=== PATIENT | male | born 1980 ===

== ENCOUNTER 2016-08-19 18:23 | Emergency (ER) | payer MEDICAID ==
[2016-08-19 20:47] VITALS: RESP 20
[2016-08-19 20:51] LABS: BASO % 0.5 % (0.0-2.0); EOS # 0.1 K/uL (0.0-0.7); EOS % 0.8 % (0.0-4.0); HEMATOCRIT 42.4 % (35.0-51.0); LYMPH # 1.9 K/uL (1.0-4.3); LYMPH % 18.9 % (20.0-40.0); MEAN CELL VOLUME 86.7 fL (80.0-94.0); MEAN CORPUSCULAR HEMOGLOBIN 28.5 pg (27.0-31.0); MEAN CORPUSCULAR HGB CONC 32.8 g/dL (33.0-37.0); MEAN PLATELET VOLUME 9.8 fL (7.2-11.7); MONO # 0.8 K/uL (0.0-0.8); MONO % 8.2 % (0.0-10.0); RED CELL DISTRIBUTION WIDTH 14.4 % (11.5-14.5); WHITE BLOOD COUNT 9.8 K/uL (4.8-10.8)
[2016-08-19 21:12] LABS: INR 1.1
[2016-08-19 21:25] LABS: CHLORIDE 107 mmol/L (98-107)
[2016-08-19 21:26] LABS: SODIUM 139 mmol/L (132-148)
[2016-08-19 21:27] LABS: CHOLESTEROL 154 mg/dL (0-199)
[2016-08-19 21:28] LABS: ALB/GLOB RATIO 1.1 (1.0-2.1); ALKALINE PHOSPHATASE 103 U/L (38-126); ALT/SGPT 26 U/L (21-72); AST/SGOT 18 U/L (17-59); BILIRUBIN,TOTAL 0.5 mg/dL (0.2-1.3); BLOOD UREA NITROGEN 19 mg/dL (9-20); CARBON DIOXIDE 24 mmol/L (22-30); GFR AFRICAN-AMERICAN > 60; GLUCOSE,RANDOM 343 mg/dL (75-110); TOTAL PROTEIN 6.8 g/dL (6.3-8.3)
--- NOTE | 2016-08-19 21:37 | C.PDOC ---
History Of Present Illness Patient is a 36 year old male who presents to the ER with a complaint of elevated blood pressure and dizziness. Patient states he does not take his insulin, blood pressure medication and does not monitor his blood pressure. Denies fever, chills, nausea or vomiting. Time Seen by Provider: 08/19/16 20:24 Chief Complaint (Nursing): Headache History Per: Patient History/Exam Limitations: no limitations Onset/Duration Of Symptoms: Hrs Current Symptoms Are (Timing): Still Present Preceeding Symptoms: None Associated Symptoms: Other (Dizziness). denies: Nausea, Vomiting Recent travel outside of the [place]: No Past Medical History Reviewed: Historical Data, Nursing Documentation, Vital Signs Vital Signs: Last Vital Signs Temp 98.5 F 08/19/16 23:13 Pulse 100 H 08/19/16 23:13 Resp 20 08/19/16 23:13 BP 163/103 H 08/19/16 23:13 Pulse Ox 98 08/19/16 23:19 - Medical History PMH: Depression, Diabetes, HTN, Migraine, Seizures Surgical History: Cholecystectomy Family History: States: Unknown Family Hx - Social History Hx Alcohol Use: No Hx Substance Use: No - Immunization History Hx Influenza Vaccination: Yes Review Of Systems Constitutional: Negative for: Fever, Chills Gastrointestinal: Negative for: Nausea, Vomiting Neurological: Positive for: Dizziness Physical Exam - Physical Exam Appears: Non-toxic, No Acute Distress, Other (Obese. Awake, alert and oriented x3. Child like demeanor) Skin: Normal Color, Warm, Dry Head: Atraumatic, Normacephalic Eye(s): bilateral: Normal Inspection, PERRL, EOMI Oral Mucosa: Moist Chest: Symmetrical, No Tenderness Cardiovascular: Rhythm Regular, No Murmur Respiratory: Normal Breath Sounds, No Rales, No Rhonchi, No Wheezing Gastrointestinal/Abdominal: Soft, No Tenderness Neurological/Psych: Oriented x3, Normal Speech, Normal Cognition ED Course And Treatment - Laboratory Results Result Diagrams: 08/19/16 20:47 08/19/16 21:13 Lab Interpretation: Abnormal (elev glu, HGB A1C 14.6 HH) ECG: Interpreted By Nd ECG Rhythm: Sinus Rhythm ECG Interpretation: Normal Rate From EC (bpm) O2 Sat by Pulse Oximetry: 98 (RA) Pulse Ox Interpretation: Normal - Radiology CXR: Interpreted by Me - CT Scan/US Head CT Other Rad Studies (CT/US): Read By Radiologist, Radiology Report Reviewed CT/US Interpretation: IMPRESSION: 1. No acute intracranial abnormality. 2. If symptoms persist, consider MRI for further evaluation. 3. Incidental/non-acute findings are described above. Progress Note: EKG and CXR ordered. Catapres, valium, insulin and toradol administered. Reevaluation Time: 23:05 Reassessment Condition: Improved Medical Decision Making Medical Decision Making: EKG: NSR at 95 bpm poorly controlled htn, DM, pt non-compliant with daily insulin and finger sticks "for 2 days only" though HGB A1C 14.6 argues for average glu levels >500 claims to have FS machine, test strips and lancets in good supply @ home. Extensively educated pt with poor insight. Disposition Doctor Will See Patient In The: Office Counseled Patient/Family Regarding: Studies Performed, Diagnosis - Disposition Referrals: Sommer Reece MD [Non-Staff] - Disposition: HOME/ ROUTINE Disposition Time: 23:18 Condition: GOOD Additional Instructions: please continue to check your finger sticks in the morning before breakfast and before dinner Write the results in your fingerstick log book and bring to your next visit with Dr. Reece You must eat a diabetic diet- 4-5 small meals per day take your blood pressure medicine, Vasotec 40 mg every morning (this is increased from previous) Follow-up with Dr. Reece this week for a follow-up appointment Prescriptions: Enalapril Maleate [Vasotec] 40 mg PO DAILY #60 tab Instructions: How to Check Your Blood Sugar (ED) - Clinical Impression Clinical Impression: Hyperglycemia due to type 1 diabetes mellitus, Hypertension - Scribe Statement The provider has reviewed the documentation as recorded by the Scribe Marlon Chan All medical record entries made by the Scribe were at my direction and personally dictated by me. I have reviewed the chart and agree that the record accurately reflects my personal performance of the history, physical exam, medical decision making, and the department course for this patient. I have also personally directed, reviewed, and agree with the discharge instructions and disposition.
[2016-08-19] MEDS ORDERED: (Novolin R) Insulin Human Regular 100 units/ml vial IV STA (21:56)
[2016-08-19] MEDS ORDERED: (Novolin R) Insulin Human Regular 100 units/ml vial ONE (22:11)
--- NOTE | 2016-08-19 22:13 | CT ---
EXAM: CT Head Without Intravenous Contrast CLINICAL HISTORY: 36 years old, male; Pain and signs and symptoms; Dizziness; Headache; Headache not specified; Additional info: [place]an/dizzy, ++ HTN TECHNIQUE: Axial computed tomography images of the head/brain without intravenous contrast. This CT exam was performed using one or more of the following dose reduction techniques: automated exposure control, adjustment of the mA and/or kV according to patient size, and/or use of iterative reconstruction technique. COMPARISON: No relevant prior studies available. FINDINGS: Brain: No intracranial hemorrhage. No mass. No definite edema. Ventricles: No hydrocephalus. Cavum septum pellucidum and vergae. Bones/joints: No acute fracture. Soft tissues: Unremarkable. Sinuses: No acute sinusitis. Mastoid air cells: No mastoid effusion. Orbits: Small calcification along RIGHT optic nerve, nonspecific. Nasopharynx: Prominent adenoids. IMPRESSION: 1. No acute intracranial abnormality. 2. If symptoms persist, consider MRI for further evaluation. 3. Incidental/non-acute findings are described above.
[2016-08-19 22:20] LABS: CALCIUM 8.7 mg/dl (8.6-10.4)
[2016-08-19 23:13] VITALS: BP 163/103; PULSE 100; TEMP 98.5
[2016-08-19 23:15] VITALS: O2SAT 98
--- NOTE | 2016-08-20 08:51 | RAD ---
HISTORY: Hypertension COMPARISON: No prior. FINDINGS: LUNGS: Mild venous congestion. PLEURA: No significant pleural effusion identified, no pneumothorax apparent. CARDIOVASCULAR: Grossly preserved. OSSEOUS STRUCTURES: No significant abnormalities. VISUALIZED UPPER ABDOMEN: Normal. OTHER FINDINGS: None. IMPRESSION: Mild venous congestion.
--- NOTE | 2016-08-22 00:26 | CARD ---
APPROVED REPORT EKG Measurement Heart [id number] <Conclusion> Normal sinus rhythm Normal ECG
== END 2016-08-19 23:34 | disposition home or self-care (01) ==
LOC: C.ER 18:23
DX: E10.65 Type 1 diabetes mellitus with hyperglycemia (principal); Z79.4 Long term (current) use of insulin; I10 Essential (primary) hypertension
CPT/HCPCS: 70450; 71010; 80053; 80061; 82948; 83036; 84484; 85025; 85610; 85730; 96374; 99285; J1885

== ENCOUNTER 2016-12-14 11:05 | Inpatient (IN) | payer MEDICAID ==
--- NOTE | 2016-12-14 11:27 | C.PDOC ---
History Of Present Illness 36 year old male presents to the ED for evaluation of recurrent chest pain and anxiety since 10:00. Patient reports history of similar symptoms in past. He states "I get them twice weekly." Chest pain described as midsternal, constant, and associated with shortness of breath. He notes that he has been noncompliant with prescription Zoloft for the past 9 months. He does not take any other medications for anxiety. He has not been evaluated for these symptoms in the past. CO RECUR CP, ANXIETY SINCE 1000. PS HO SIM PRIOR SX, "I GET THEM TWICE WEEKLY". MIDSTERNAL CONSTANT +SOB. NONCOMPLIANT W ZOLOFT X 9 MONTHS. TAKES NO OTHER MEDS FOR ANXIETY. NO PRIOR EVAL FOR SAME. EXAM MILD DIST PSYCH MILD ANXIETY BUT CALM CONSOLABLE, COOPERATIVE LUNGS CTA B/L NO W/R/R CV RRR REMIANDER NEG Time Seen by Provider: 12/14/16 11:17 Chief Complaint (Nursing): Chest Pain History Per: Patient History/Exam Limitations: no limitations Onset/Duration Of Symptoms: Mins Associated Symptoms: Other (Shortness of breath) Past Medical History Reviewed: Historical Data, Nursing Documentation, Vital Signs Vital Signs: Last Vital Signs Temp 97.8 F 12/15/16 07:05 Pulse 82 12/15/16 08:03 Resp 20 12/15/16 07:05 BP 128/77 12/15/16 07:05 Pulse Ox 97 12/15/16 10:04 - Medical History PMH: Depression, Diabetes, HTN, Migraine, Seizures Denies: Chronic Kidney Disease Surgical History: Cholecystectomy Family History: States: Unknown Family Hx - Social History Hx Alcohol Use: No Hx Substance Use: No - Immunization History Hx Influenza Vaccination: Yes Review Of Systems Cardiovascular: Positive for: Chest Pain Respiratory: Positive for: Shortness of Breath Psych: Positive for: Anxiety Physical Exam - Physical Exam Appears: Non-toxic, In Acute Distress (Mild) Skin: Warm, Dry Head: Atraumatic, Normacephalic Eye(s): bilateral: Normal Inspection, PERRL, EOMI Cardiovascular: Rhythm Regular (Rate regular ) Respiratory: No Rales, No Rhonchi, No Wheezing, Other (Clear to ascultation bilaterally) Extremity: No Pedal Edema, No Deformity Neurological/Psych: Oriented x3, Other (mild anxiety but calm, consolable, and cooperative ) ED Course And Treatment - Laboratory Results Result Diagrams: 12/14/16 11:52 12/14/16 11:52 ECG: Interpreted By Me ECG Rhythm: Sinus Tachycardia Rate From EC O2 Sat by Pulse Oximetry: 97 Pulse Ox Interpretation: Normal Progress - Re-Evaluation Re-evaluation Note: 12/14/16 12:09 CRYING BUT CONSOLABLE "JENNIFER BEEN PLAYING [employer]". NONCOMPLIANT W DM MEDS "I DONT REMEMBER THE LAST TIME I TOOK THEM". 12/14/16 12:49 APPEARS CALM, IMPROVED FROM PRIOR. HR 111 SINUS TACH. NO CP. D/W DR BAY WILL EVAL FOR ICU 12/14/16 12:56 D/W DR CLEMENTE HUDDLESTON [employer] WILL ADMIT 12/14/16 12:57 D/W PSYCH 5E WILL CONSULT PT ON FLOOR 12/14/16 13:11 PT CLEARED FOR TELE PER DR BAY - Data Reviewed Data Reviewed: Lab, Diagnostic imaging, EKG, Old records - Critical Care Citical Care: Excluding Proc Time Critical Care Time: 90 minutes - Continuity of Care Discussed patient case with:: Patient, On-call PMD-pt unassigned Discussed pt. case with [employer] sales consultant/specialty: Psychiatry, Pulmonary/Crit. Care Disposition Counseled Patient/Family Regarding: Studies Performed, Diagnosis - Disposition Disposition: HOSPITALIZED Disposition Time: 12:56 Condition: SERIOUS - POA Present On Arrival: Poor Glycemic Control - Clinical Impression Clinical Impression: Chest pain, Depression, DKA (diabetic ketoacidoses) - Scribe Statement The provider has reviewed the documentation as recorded by the Sylvia Kennedy Provider Attestation: All medical record entries made by the Shastaibe were at my direction and personally dictated by me. I have reviewed the chart and agree that the record accurately reflects my personal performance of the history, physical exam, medical decision making, and the department course for this patient. I have also personally directed, reviewed, and agree with the discharge instructions and disposition. Decision To Admit - Pt Status Changed To: Hospital Disposition Of: Inpatient - Admit Certification Admit to Inpatient:: After my assessment, the patient will require hospitalization for at least two midnights. This is because of the severity of symptoms shown, intensity of services needed, and/or the medical risk in this patient being treated as an outpatient. - InPatient: Physician Admission Certification: I certify that this patient requires 2 or more midnights of care for the following reason:: SEE NOTE - . Bed Request Type: Telemetry Admitting Physician: Ray Barfield Patient Diagnosis: Chest pain, Depression, DKA (diabetic ketoacidoses)
[2016-12-14 11:57] LABS: BASO # 0.1 K/uL (0.0-0.2); BASO % 0.5 % (0.0-2.0); EOS % 0.4 % (0.0-4.0); HEMATOCRIT 45.5 % (35.0-51.0); LYMPH # 1.9 K/uL (1.0-4.3); LYMPH % 16.9 % (20.0-40.0); MEAN CELL VOLUME 85.8 fL (80.0-94.0); MEAN CORPUSCULAR HEMOGLOBIN 28.9 pg (27.0-31.0); MEAN CORPUSCULAR HGB CONC 33.7 g/dL (33.0-37.0); MEAN PLATELET VOLUME 9.5 fL (7.2-11.7); MONO # 0.7 K/uL (0.0-0.8); MONO % 6.2 % (0.0-10.0); NRBC % 0.1 % (0.0-2.0); RED CELL DISTRIBUTION WIDTH 14.4 % (11.5-14.5)
[2016-12-14] MEDS ORDERED: Sodium Chloride 0.9% 1,000 ML IV ONE ×3 (12:03→16:14)
[2016-12-14 12:12] LABS: CHLORIDE 95 mmol/L (98-107)
[2016-12-14 12:13] LABS: POTASSIUM 4.8 mmol/L (3.6-5.2); SODIUM 129 mmol/L (132-148)
[2016-12-14 12:15] LABS: GFR AFRICAN-AMERICAN > 60
[2016-12-14] MEDS ORDERED: Sodium Chloride 0.9% 1,000 ML ONE (12:15)
[2016-12-14 12:16] LABS: BLOOD UREA NITROGEN 27 mg/dL (9-20); CARBON DIOXIDE 18 mmol/L (22-30)
[2016-12-14] MEDS ORDERED: (Novolin R) Insulin Human Regular 100 units/ml vial IV STA ×2 (12:32)
[2016-12-14 12:33] LABS: GLUCOSE,RANDOM 639 mg/dL (75-110)
[2016-12-14 12:43] LABS: VENOUS BLOOD GAS BASE EXCESS -4.8 mmol/L (0.0-2.0); VENOUS BLOOD GAS PCO2 44 mmHg (40-60)
[2016-12-14] MEDS ORDERED: (Novolin R) Insulin Human Regular 100 units/ml vial ONE (12:51)
--- NOTE | 2016-12-14 14:29 | RAD ---
PROCEDURE: CHEST RADIOGRAPH, 1 VIEW HISTORY: chest pain COMPARISON: Comparison is made to 08/19/2016 FINDINGS: LUNGS: Clear. PLEURA: No pneumothorax or pleural fluid seen. CARDIOVASCULAR: Normal. OSSEOUS STRUCTURES: No significant abnormalities. VISUALIZED UPPER ABDOMEN: Normal. OTHER FINDINGS: None. IMPRESSION: No active disease.
[2016-12-14 15:03] VITALS: RESP 20
[2016-12-14] MEDS ORDERED: (Novolin 70/30) NPH/Regular 70/30 Units/ml 10 ml vial SC ONE (16:14)
[2016-12-14] MEDS ORDERED: Sodium Chloride 0.9% 250 ML IV ONE (16:24)
[2016-12-14] MEDS ORDERED: Insulin Detemir 100 units/ml Vial (Levemir) SC SCH (22:00)
[2016-12-14] MEDS ORDERED: (Novolog) Insulin Aspart, Recombinant 100 u/ml 10 ml vial SC SCH (22:00)
[2016-12-14] MEDS ORDERED: (Novolog) Insulin Aspart, Recombinant 100 u/ml 10 ml vial SC STA (22:00)
[2016-12-14] MEDS: Sodium Chloride 0.9% 1,000 ML IV SCH (22:51)
[2016-12-15] MEDS: Sodium Chloride 0.9% 1,000 ML IV SCH ×4 (05:35→22:10)
[2016-12-15] MEDS ORDERED: Insulin Detemir 100 units/ml Vial (Levemir) SC SCH ×3 (07:30→18:23)
[2016-12-15] MEDS: (Novolog) Insulin Aspart, Recombinant 100 u/ml 10 ml vial SC SCH ×3 (08:15→17:30)
[2016-12-15] MEDS ORDERED: Pantoprazole 40 mg EC Tab PO SCH (10:00)
[2016-12-15] MEDS ORDERED: (Novolog) Insulin Aspart, Recombinant 100 u/ml 10 ml vial SC SCH (18:05)
--- NOTE | 2016-12-15 18:14 | CP.PCM.CON ---
History of Present Illness - History of Present Illness History of Present Illness: uncontrolled dm Past Patient History - Past Medical History & Family History Past Medical History?: Yes - Past Social History Smoking Status: Never Smoked - CARDIAC Hx Hypertension: Yes - PULMONARY Hx Respiratory Disorders: No - NEUROLOGICAL Hx Migraine: Yes Hx Seizures: Yes - HEENT Hx HEENT Problems: Yes Other/Comment: wear eyeglasses for reading - RENAL Hx Chronic Kidney Disease: No - ENDOCRINE/METABOLIC Hx Endocrine Disorders: Yes Hx Diabetes Mellitus Type 1: Yes - HEMATOLOGICAL/ONCOLOGICAL Hx Blood Disorders: No - INTEGUMENTARY Hx Dermatological Problems: Yes Other/Comment: Hx of left buttock abscess. Noted old scar - MUSCULOSKELETAL/RHEUMATOLOGICAL Hx Falls: Yes - GASTROINTESTINAL Hx Gastrointestinal Disorders: No - GENITOURINARY/GYNECOLOGICAL Hx Genitourinary Disorders: No - PSYCHIATRIC Hx Depression: Yes Hx Substance Use: No - SURGICAL HISTORY Hx Cholecystectomy: Yes - ANESTHESIA Hx Anesthesia: Yes Hx Anesthesia Reactions: No Hx Malignant Hyperthermia: No Has any member of the family had a problem w/ anesthesia?: No Meds Allergies/Adverse Reactions: Allergies Allergy/AdvReac Type Severity Reaction Status Date / Time iodine Allergy RASH Verified 12/14/16 11:09 - Medications Medications: Current Medications Sodium Chloride (Sodium Chloride 0.9%) 1,000 mls @ 150 mls/hr IV .Q6H40M [facility] Last Admin: 12/15/16 10:45 Dose: Not Given Insulin Aspart (Novolog) 0 unit SC ACHS [facility] PRN Reason: Protocol Last Admin: 12/15/16 17:30 Dose: 6 unit Insulin Detemir (Levemir) 18 unit SC ACB [facility] Last Admin: 12/15/16 08:10 Dose: 18 unit Insulin Detemir (Levemir) 30 unit SC HS [facility] Last Admin: 12/14/16 22:16 Dose: 30 unit Lisinopril (Zestril) 20 mg PO DAILY [facility] Last Admin: 12/15/16 09:18 Dose: 20 mg Pantoprazole Sodium (Protonix Ec Tab) 40 mg PO DAILY [facility] Last Admin: 12/15/16 09:18 Dose: 40 mg Pneumococcal Polyvalent Vaccine (Pneumovax 23 Vaccine) 0.5 ml IM .ONCE ONE Stop: 12/16/16 10:01 Results - Vital Signs Recent Vital Signs: Last Vital Signs Temp 98.1 F 12/15/16 15:00 Pulse 84 12/15/16 15:00 Resp 20 12/15/16 15:00 BP 123/82 12/15/16 15:00 Pulse Ox 96 12/15/16 15:00 - Labs Result Diagrams: 12/14/16 11:52 12/14/16 11:52 Labs: Laboratory Results - last 24 hr 12/14/16 12/15/16 12/15/16 21:12 02:01 05:49 POC Glucose (mg/dL) 429 H* 285 H 218 H 12/15/16 12/15/16 11:30 17:16 POC Glucose (mg/dL) 277 H 268 H Assessment & Plan (1) Chest pain Status: Acute (2) DKA (diabetic ketoacidoses) Assessment and Plan: Endocrine consult reason for consult: uncontrolled diabetes Source : Mr. Lenin Gresham is 36 y/o man admitted for chest pain , found with glucose > 600 as per pt. has DM x 17 years (+) neuropathy , (+) retinopathy , (-) nephropathy (-) CAD (-) PVD outpatient diabetes management regimen : levemir 18 units am & levemir 30 units pm , off Metformin , short acting insulin not covered by insurance ! inpatient diabetes management regimen : same & novolog scale blood glucose log :200's , as per nurse in charge , pt has been refusing blood drown NO hypoglycemia Allergy Idoine Past medical history :HTN Past surgical history : cholecystectomy, buttock abscess I & D Psychiatry history : (+) psychiatry disorder Social history : smoking , ETOH use , illicit drug use Family history : irrelevant ROS: Constitutional: denies fever ,tiredness/weakness .HEENT: denies earache, change in voice .Respiratory: denies cough, sob . CVS :no chest pain, no palpitations . Abdomen : no abdominal pain, no nausea /vomiting , no change bowel movement . OFFSET PRESSMAN : denies light-headedness, dizziness. Extremities : no edema , no tremors . Skin: no itching, no rash Physical exam Well developed AAO x3 , ,NAD VSS HEENT: norm cephalic, atraumatic , no lid lag , no exophthalmos NECK: supple, no palpable lymphadenopathy THYROID: no palpable thyromegaly , not tender CHEST: fair air entry, bilateral, CVS: S1,S2 ABDOMEN: bowel sound present, benign, obese, no wide purple striae , no bruises EXTREMITIES: no edema, clubbing or cyanosis, no palpable hand tremors Skin : acanthosis nigricans lab: noted Assessment DKA uncontrolled IDDM with retinopathy and neuropathy chest pain morbid obesity plan increase Levemir 20 units am & 32 units pm stop Novolog start Novoloin R low dose coverage, no 3 am coverage start novoloin R 5 units tid with meals if eat > 60% will try to obtain a1c & TSH , CMP stat plan communicated with nurse in charge who read back the instructions correctly Thank you for allowing me to participate in the care of the patient, we will follow with you. Status: Acute (3) Morbid obesity Status: Acute
[2016-12-15] MEDS: (Novolin R) Insulin Human Regular 100 units/ml vial SC SCH (21:54)
[2016-12-16] MEDS: (Novolin R) Insulin Human Regular 100 units/ml vial SC SCH (07:55)
[2016-12-16] MEDS ORDERED: (Novolin R) Insulin Human Regular 100 units/ml vial SC SCH (08:00)
[2016-12-16 08:37] VITALS: BP 122/81; PULSE 64; TEMP 97.5; O2SAT 98
--- NOTE | 2016-12-16 09:39 | CP.PCM.PN ---
Subjective - Date & Time of Evaluation Date of Evaluation: 12/16/16 Time of Evaluation: 09:38 - Subjective Subjective: This patient requested to leave AMA He was ANOx3 at time of evaluation, and understood all of the risks and benefits of forgoing further treatment. When told that he came in in DKA the patient denied that he had this problem, but when it was explained that all of his symptoms were explained by this he verbalized understanding. Risks include: Coma, , respiratory failure, and continued diabetic ketoacidosis the patient verbalized understanding and he was asked to take his medications as prescribed IV line was removed by nursing staff and patient left AMA Attending physician Dr. Barfield notified AMA form signed and in chart Objective - Vital Signs/Intake and Output Vital Signs (last 24 hours): Temp Pulse Resp BP Pulse Ox 97.5 F L 64 20 122/81 98 12/16/16 07:05 12/16/16 07:05 12/16/16 07:05 12/16/16 07:05 12/16/16 07:05 Intake and Output: 12/16/16 12/16/16 06:59 18:59 Intake Total 2800 Output Total 1600 Balance 1200 - Labs Labs: 12/14/16 11:52 12/14/16 11:52
--- NOTE | 2016-12-16 09:51 | HP ---
HISTORY OF PRESENT ILLNESS: A 36-year-old male admitted to the hospital with complaint of polyuria, polydipsia, weakness. The patient is extremely noncompliant with medication. The patient . PHYSICAL EXAMINATION: GENERAL: The patient is awake, alert and oriented. VITAL SIGNS: Temperature 98, pulse 90. HEENT: Within normal limits. NECK: Supple. CHEST: Symmetrical. HEART: Regular. ABDOMEN: Soft. EXTREMITIES: No edema. IMPRESSION: The patient will have repeat test done.. The patient needs bed rest, supportive care, insulin, IV fluid. Ray Barfield MD
[2016-12-16] MEDS ORDERED: Enoxaparin 40 mg Syringe SC SCH (10:00)
[2016-12-16] MEDS ORDERED: Pneumococcal 23-Valent Vaccine IM ONE (10:00)
[2016-12-16] MEDS ORDERED: Influenza Vaccine 60 mcg/0.5 mL SYR (4YR UP) IM ONE (10:00)
--- NOTE | 2016-12-16 12:39 | CARD ---
APPROVED REPORT EKG Measurement Heart [id number] <Conclusion> Sinus tachycardia Septal infarct, age undetermined Abnormal ECG
== END 2016-12-16 09:32 | disposition left against medical advice (07) | DRG 295 ==
LOC: C.ER 11:05 → C.9E 13:12 → C.6T 15:55
PROVIDERS: ADMIT Internal Medicine Pulmonary Disease; ATTEND Internal Medicine Pulmonary Disease
DX: E10.10 Type 1 diabetes mellitus with ketoacidosis without coma (principal); Z68.41 Body mass index [BMI] 40.0-44.9, adult; R07.9 Chest pain, unspecified; F32.9 Major depressive disorder, single episode, unspecified; F41.9 Anxiety disorder, unspecified; I10 Essential (primary) hypertension; E10.40 Type 1 diabetes mellitus with diabetic neuropathy, unspecified; E10.319 Type 1 diabetes mellitus with unspecified diabetic retinopathy without macular edema; E66.01 Morbid (severe) obesity due to excess calories; Z79.4 Long term (current) use of insulin; Z90.49 Acquired absence of other specified parts of digestive tract; Z91.14 Patient's other noncompliance with medication regimen

== ENCOUNTER 2017-09-27 19:05 | Emergency (ER) | payer MEDICAID ==
[2017-09-27 19:05] VITALS: BMI 45.8
[2017-09-27] MEDS ORDERED: Sodium Chloride 0.9% 1,000 ML IV ONE ×2 (19:31→20:59)
[2017-09-27] MEDS ORDERED: (Novolin R) Insulin Human Regular 100 units/ml vial IV STA ×3 (19:31→20:55)
[2017-09-27 19:59] LABS: ABG ALLEN TEST POS; ARTERIAL BLOOD GAS HCO3 23.6 mmol/L (21-28); ARTERIAL BLOOD GAS O2 SAT 86.4 % (95-98); ARTERIAL BLOOD GAS PCO2 39 mm/Hg (35-45); ARTERIAL BLOOD GAS PH 7.39 (7.35-7.45); ARTERIAL BLOOD GAS PO2 48 mm/Hg (80-100); ARTERIAL BLOOD GAS TCO2 24.8 mmol/L (22-28)
[2017-09-27] MEDS ORDERED: (Novolin R) Insulin Human Regular 100 units/ml vial ONE (20:22)
[2017-09-27 21:07] LABS: BASO % 0.5 % (0.0-2.0); EOS % 0.4 % (0.0-4.0); LYMPH % 23.2 % (20.0-40.0); MEAN CELL VOLUME 86.7 fL (80.0-94.0); MEAN CORPUSCULAR HEMOGLOBIN 28.9 pg (27.0-31.0); MEAN CORPUSCULAR HGB CONC 33.3 g/dL (33.0-37.0); MEAN PLATELET VOLUME 8.9 fL (7.2-11.7); MONO # 0.1 K/uL (0.0-0.8); MONO % 1.3 % (0.0-10.0); NEUT # 6.4 K/uL (1.8-7.0); NEUT % 74.6 % (50.0-75.0); RBC 5.55 Mil/uL (4.40-5.90); RED CELL DISTRIBUTION WIDTH 14.1 % (11.5-14.5); WHITE BLOOD COUNT 8.6 K/uL (4.8-10.8)
[2017-09-27 21:21] LABS: ALB/GLOB RATIO 1.1 (1.0-2.1); ALBUMIN 4.5 g/dL (3.5-5.0); ALT/SGPT 28 U/L (21-72); AST/SGOT 20 U/L (17-59); BLOOD UREA NITROGEN 25 mg/dL (9-20); CALCIUM 10.1 mg/dl (8.6-10.4); GFR AFRICAN-AMERICAN > 60; GFR NON-AFRICAN AMERICAN > 60
[2017-09-27 21:35] LABS: SQUAMOUS EPITHIAL 1 /hpf (0-5); URINE BILIRUBIN NEGATIVE (NEGATIVE); URINE BLOOD NEGATIVE (NEGATIVE); URINE CLARITY Clear (Clear); URINE COLOR Straw (YELLOW); URINE GLUCOSE (UA) 3+ mg/dL (Normal); URINE PROTEIN NEGATIVE (NEGATIVE); URINE UROBILINOGEN NORMAL mg/dL (0.2-1.0)
[2017-09-27 21:37] LABS: URINE BACTERIA RARE (<OCC); URINE LEUKOCYTE ESTERASE 1+ Leu/uL (Negative)
--- NOTE | 2017-09-27 22:46 | C.PDOC ---
History Of Present Illness 37 year old male with a history of uncontrolled diabetes presents to the emergency department stating that his mother kicked him out of the house. Patient has a history of diabetes, depression, and DKA. Patient claims that he uses insulin but his medication list shows Metformin. Patient complains of left upper chest discomfort. Time Seen by Provider: 09/27/17 19:28 Chief Complaint (Nursing): Chest Pain History Per: Patient History/Exam Limitations: no limitations Onset/Duration Of Symptoms: Hrs Current Symptoms Are (Timing): Still Present Quality: "Pain" (left upper chest) Past Medical History Reviewed: Historical Data, Nursing Documentation, Vital Signs Vital Signs: Last Vital Signs Temp 96.8 F L 09/27/17 23:02 Pulse 90 09/27/17 23:02 Resp 12 09/27/17 23:02 BP 132/68 09/27/17 23:02 Pulse Ox 100 09/27/17 23:02 - Medical History PMH: Anxiety, Arthritis, Depression, Diabetes, HTN, Migraine, Seizures Denies: Hepatitis, HIV, Chronic Kidney Disease, Sexually Transmitted Disease Surgical History: Cholecystectomy - [facility] DETOXIFICATION SERVICES FOR SUBSTANCE ABUSE TREATMENT (12/31/16) INDIVIDUAL PSYCHOTHERAPY, SUPPORTIVE (12/31/16) Family History: States: Unknown Family Hx - Social History Hx Alcohol Use: No Hx Substance Use: No - Immunization History Hx Tetanus Toxoid Vaccination: No Hx Influenza Vaccination: No Hx Pneumococcal Vaccination: No Review Of Systems Except As Marked, All Systems Reviewed And Found Negative. Cardiovascular: Positive for: Chest Pain (left upper chest) Physical Exam - Physical Exam Appears: Non-toxic, No Acute Distress, Other (morbidly obese) Skin: Warm, Dry, No Rash Head: Atraumatic, Normacephalic Eye(s): bilateral: Normal Inspection Nose: Normal Oral Mucosa: Moist Throat: Normal, No Erythema, No Exudate Neck: Normal, Supple Chest: Symmetrical, Tenderness (digitally reproducible pain to the left upper chest) Cardiovascular: Rhythm Regular, No Murmur Respiratory: Normal Breath Sounds, No Rales, No Rhonchi, No Wheezing Gastrointestinal/Abdominal: Normal Exam, Soft, No Tenderness, No Guarding, No Rebound Neurological/Psych: Oriented x3, Normal Speech, Normal Cognition ED Course And Treatment - Laboratory Results Result Diagrams: 09/27/17 20:59 09/27/17 20:59 Lab Interpretation: Abnormal (elev glu, easily controlled with insulin IV and IVF, no dehydration, trop neg. ABG without acidosis.) ECG: Interpreted By Me ECG Rhythm: Sinus Rhythm ECG Interpretation: Normal Rate From EC O2 Sat by Pulse Oximetry: 96 (RA) Pulse Ox Interpretation: Normal - Radiology CXR: Interpreted by Me CXR Interpretation: Yes: No Acute Disease Medical Decision Making Medical Decision Making: diabetic, poorly controlled no DKA nor dehydration L upper chest discomfort is positionally and digitally reproducable- costochondritis normal CXR/EKG/Trop. Plan: ABG EKG CMP Hemoglobin A1C Troponin CBC CXR [place] Glucose POC Insulin NaCl IV Fluids Urinalysis Disposition Doctor Will See Patient In The: Office Counseled Patient/Family Regarding: Studies Performed, Diagnosis - Disposition Referrals: [facility] [Outside] [facility] [Outside] [facility] [Outside] [facility] [Outside] Disposition: HOME/ ROUTINE Disposition Time: 22:46 Condition: GOOD Additional Instructions: continue metformin 1000 mg twice a day diabetic diet drink plenty of water outpatient follow-up w Psychiatry for medications and counseling as needed Prescriptions: MetFORMIN [glucoPHAGE] 1,000 mg PO BID #60 tab Instructions: Costochondritis, Diabetes Type 2 (DC) Forms: [employer] (Ukrainian) - Clinical Impression Clinical Impression: Poorly controlled diabetes mellitus, Chest wall discomfort - Scribe Statement The provider has reviewed the documentation as recorded by the Scribe (Matthew Hernandez) Provider Attestation: All medical record entries made by the Scribe were at my direction and personally dictated by me. I have reviewed the chart and agree that the record accurately reflects my personal performance of the history, physical exam, medical decision making, and the department course for this patient. I have also personally directed, reviewed, and agree with the discharge instructions and disposition.
[2017-09-27 23:04] VITALS: BP 132/68; PULSE 90; RESP 12; TEMP 96.8
[2017-09-27 23:44] VITALS: O2SAT 96
--- NOTE | 2017-09-28 12:03 | RAD ---
Date of service: 09/27/2017 PROCEDURE: CHEST RADIOGRAPH, 1 VIEW HISTORY: Diabetic COMPARISON: Comparison is made with 12/14/2016 FINDINGS: LUNGS: Clear. PLEURA: No pneumothorax or pleural fluid seen. CARDIOVASCULAR: Normal. OSSEOUS STRUCTURES: No significant abnormalities. VISUALIZED UPPER ABDOMEN: Normal. OTHER FINDINGS: None. IMPRESSION: No active disease.
--- NOTE | 2017-09-30 15:06 | CARD ---
APPROVED REPORT Date of service: 09/27/2017 EKG Measurement Heart [id number] <Conclusion> Normal sinus rhythm possible old asmi.non specific st t changes. Abnormal ECG
== END 2017-09-27 23:02 | disposition home or self-care (01) ==
LOC: C.ER 19:05
DX: E11.65 Type 2 diabetes mellitus with hyperglycemia (principal); Z79.84 Long term (current) use of oral hypoglycemic drugs; R07.89 Other chest pain
CPT/HCPCS: 36600; 71045; 80053; 81001; 82803; 82948; 83036; 84484; 85025; 93005; 96374; 96376; 99284; J7030

== ENCOUNTER 2017-12-26 17:09 | Emergency (ER) | payer MEDICAID ==
[2017-12-26 17:22] VITALS: BMI 38.9
[2017-12-26 17:26] VITALS: TEMP 99.4
[2017-12-26 18:01] LABS: BASO # 0.1 K/uL (0.0-0.2); BASO % 0.7 % (0.0-2.0); EOS # 0.1 K/uL (0.0-0.7); HEMOGLOBIN 13.7 g/dL (12.0-18.0); LYMPH # 1.8 K/uL (1.0-4.3); LYMPH % 24.4 % (20.0-40.0); MEAN CELL VOLUME 87.7 fL (80.0-94.0); MEAN CORPUSCULAR HEMOGLOBIN 29.2 pg (27.0-31.0); MEAN CORPUSCULAR HGB CONC 33.3 g/dL (33.0-37.0); MEAN PLATELET VOLUME 8.9 fL (7.2-11.7); MONO # 0.5 K/uL (0.0-0.8); MONO % 6.9 % (0.0-10.0); NEUT # 5.1 K/uL (1.8-7.0); RBC 4.67 Mil/uL (4.40-5.90); WHITE BLOOD COUNT 7.5 K/uL (4.8-10.8)
[2017-12-26 18:08] LABS: SQUAMOUS EPITHIAL 1 /hpf (0-5); URINE BILIRUBIN NEGATIVE (NEGATIVE); URINE BLOOD 1+ (NEGATIVE); URINE CLARITY Clear (Clear); URINE COLOR Yellow (YELLOW); URINE GLUCOSE (UA) 3+ mg/dL (Normal); URINE HYALINE CAST 0-2 /lpf (0-2); URINE LEUKOCYTE ESTERASE NEG Leu/uL (Negative); URINE PROTEIN 2+ mg/dL (NEGATIVE); URINE UROBILINOGEN NORMAL mg/dL (0.2-1.0)
[2017-12-26 18:25] LABS: ALB/GLOB RATIO 1.2 (1.0-2.1); ALT/SGPT 26 U/L (21-72); AST/SGOT 24 U/L (17-59); BLOOD UREA NITROGEN 19 mg/dL (9-20); CALCIUM 10.2 mg/dl (8.6-10.4); GFR NON-AFRICAN AMERICAN > 60
[2017-12-26 18:52] LABS: BARBITURATES, UR NEGATIVE (NEGATIVE); BENZODIAZEPINES, UR NEGATIVE (NEGATIVE); OPIATES, UR NEGATIVE (NEGATIVE); PHENCYCLIDINE, UR NEGATIVE (NEGATIVE)
--- NOTE | 2017-12-26 19:32 | C.PDOC ---
History Of Present Illness 37 y/o male, with PMHx of diabetes, presents to ED for evaluation of depression. He reports occasional thoughts of hurting himself but does not have such thoughts currently. Notes he has not been taking his psych meds for a "while". Otherwise, denies homicidal ideation, hallucination, or any physical complaints. Chief Complaint (Nursing): Psychiatric Evaluation History Per: Patient History/Exam Limitations: no limitations Past Medical History Reviewed: Historical Data, Nursing Documentation, Vital Signs Vital Signs: Last Vital Signs Temp 99.4 F 12/26/17 17:23 Pulse 87 12/26/17 17:23 Resp 18 12/26/17 17:23 BP 170/113 H 12/26/17 17:23 Pulse Ox 100 12/26/17 17:23 - Medical History PMH: Anxiety, Arthritis, Depression, Diabetes, HTN, Migraine, Seizures Denies: Hepatitis, HIV, Chronic Kidney Disease, Sexually Transmitted Disease Surgical History: Cholecystectomy - [facility] Procedures DETOXIFICATION SERVICES FOR SUBSTANCE ABUSE TREATMENT (12/31/16) INDIVIDUAL PSYCHOTHERAPY, SUPPORTIVE (12/31/16) Family History: States: Unknown Family Hx - Social History Hx Alcohol Use: No Hx Substance Use: No - Immunization History Hx Tetanus Toxoid Vaccination: No Hx Influenza Vaccination: No Hx Pneumococcal Vaccination: No Review Of Systems Except As Marked, All Systems Reviewed And Found Negative. Constitutional: Negative for: Fever, Chills Cardiovascular: Negative for: Chest Pain, Palpitations Respiratory: Negative for: Cough, Shortness of Breath Psych: Positive for: Depression Physical Exam - Physical Exam Appears: Non-toxic, No Acute Distress Skin: Normal Color, Warm, Dry Head: Atraumatic, Normacephalic Eye(s): bilateral: Normal Inspection Oral Mucosa: Moist Neck: Supple Cardiovascular: Rhythm Regular, No Murmur Respiratory: Normal Breath Sounds, No Rales, No Rhonchi, No Wheezing Gastrointestinal/Abdominal: Soft, No Tenderness Extremity: Bilateral: Atraumatic, Normal ROM Neurological/Psych: Oriented x3, Normal Speech ED Course And Treatment - Laboratory Results Result Diagrams: 12/26/17 17:55 12/26/17 17:55 O2 Sat by Pulse Oximetry: 100 (RA) Pulse Ox Interpretation: Normal Medical Decision Making Medical Decision Making: Blood work, urinalysis ordered and reviewed. Pt is medically cleared for crisis evaluation. Disposition - Disposition Referrals: [facility], [Non-Staff] - Disposition: HOME/ ROUTINE Disposition Time: 20:00 Condition: GOOD Additional Instructions: MELINDA HAGAN, thank you for letting us take care of you today. The emergency medical care you received today was directed at your acute symptoms. If you were prescribed any medication, please fill it and take as directed. It may take several days for your symptoms to resolve. Return to the Emergency Department if your symptoms worsen, do not improve, or if you have any other problems. Please contact your doctor or call one of the physicians/clinics you have been referred to that are listed on the Patient Visit Information form that is included in your discharge packet. Bring any paperwork you were given at discharge with you along with any medications you are taking to your follow up visit. Our treatment cannot replace ongoing medical care by a primary care provider outside of the emergency department. Thank you for allowing the [facility] team to be part of your care today. Take your blood pressure as prescribed. Follow up with [facility] in 1-2 days for further evaluation and management. Instructions: Depression Forms: [employer] (Sao Tomean) - Clinical Impression Clinical Impression: Hypertension, Depression - Scribe Statement The provider has reviewed the documentation as recorded by the Scribe KP All medical record entries made by the Scribe were at my direction and personally dictated by me. I have reviewed the chart and agree that the record accurately reflects my personal performance of the history, physical exam, medical decision making, and the department course for this patient. I have also personally directed, reviewed, and agree with the discharge instructions and disposition.
[2017-12-26 19:44] VITALS: BP 192/115; PULSE 80; RESP 16
[2017-12-26 23:29] VITALS: O2SAT 100
== END 2017-12-26 20:22 | disposition home or self-care (01) ==
LOC: C.ER 17:09
DX: F32.9 Major depressive disorder, single episode, unspecified (principal); I10 Essential (primary) hypertension; E11.9 Type 2 diabetes mellitus without complications

== ENCOUNTER 2018-02-10 11:35 | Emergency (ER) | payer MEDICAID ==
[2018-02-10 11:54] VITALS: TEMP 98.4; BMI 39.2
[2018-02-10] MEDS ORDERED: Albuterol-Ipratrop 3 mg / 0.5 (3 ml) UD INH STA (12:59)
[2018-02-10] MEDS ORDERED: Albuterol-Ipratrop 3 mg / 0.5 (3 ml) UD ONE ×2 (13:10→13:35)
--- NOTE | 2018-02-10 13:26 | C.PDOC ---
History Of Present Illness 37 year old male, whose past medical history includes asthma and hypertension, presents to the ED for evaluation of shortness of breath which began at around 1130 today when walking outside in the cold weather. He did not have is inhaler on him at the time and nearby person told him to go to the ER. While in ED patient also complains of pain to his left foot after he injured the area while working out at the gym around one month ago. Patient also complains of headache, right-sided neck pain, nasal congestion and cough few days. Patient states he takes Lisinopril 5mg daily. He took the medication yesterday, but did not take it today. Patient took Excedrin for his headache yesterday. He denies fever, chills, chest pain, nausea, vomiting. Time Seen by Provider: 02/10/18 12:41 Chief Complaint (Nursing): Shortness Of Breath History Per: Patient History/Exam Limitations: no limitations Onset/Duration Of Symptoms: Hrs Current Symptoms Are (Timing): Still Present Quality: "Pain" Associated Symptoms: denies: Fever, Chills Additional History Per: Patient Past Medical History Reviewed: Historical Data, Nursing Documentation, Vital Signs Vital Signs: Last Vital Signs Temp 98.4 F 02/10/18 11:50 Pulse 107 H 02/10/18 11:50 Resp 18 02/10/18 11:50 BP 148/114 H 02/10/18 11:50 Pulse Ox 96 02/10/18 11:50 - Medical History PMH: Anxiety, Arthritis, Depression, Diabetes, HTN, Migraine, Seizures Denies: Hepatitis, HIV, Chronic Kidney Disease, Sexually Transmitted Disease Surgical History: Cholecystectomy - [facility] Procedures DETOXIFICATION SERVICES FOR SUBSTANCE ABUSE TREATMENT (12/31/16) INDIVIDUAL PSYCHOTHERAPY, SUPPORTIVE (12/31/16) Family History: States: Unknown Family Hx - Social History Hx Alcohol Use: No Hx Substance Use: No - Immunization History Hx Tetanus Toxoid Vaccination: No Hx Influenza Vaccination: No Hx Pneumococcal Vaccination: No Review Of Systems Constitutional: Negative for: Fever Eyes: Negative for: Vision Change, Redness ENT: Positive for: Nose Congestion. Negative for: Ear Pain, Throat Pain Cardiovascular: Negative for: Chest Pain, Palpitations Respiratory: Positive for: Cough, Shortness of Breath Gastrointestinal: Negative for: Abdominal Pain Musculoskeletal: Positive for: Neck Pain (right-sided ), Other (left foot pain ) Neurological: Positive for: Headache Physical Exam - Physical Exam Appears: Non-toxic, No Acute Distress, Other (obese) Skin: Normal Color, Warm, Dry, No Ecchymosis Head: Atraumatic, Normacephalic Eye(s): bilateral: Normal Inspection Oral Mucosa: Moist Neck: Normal ROM, No Midline Cervical Tenderness, Supple Chest: Symmetrical, No Deformity, No Tenderness Cardiovascular: Rhythm Regular, No Murmur Respiratory: Normal Breath Sounds, No Rales, No Rhonchi, No Wheezing, Other (speaking in full sentences ) Extremity: Normal ROM (toes of left foot ), Tenderness (mild to lateral aspect of left ankle ), Capillary Refill (less than 2 seconds ), No Swelling Pulses: Left Dorsalis Pedis: Normal, Right Dorsalis Pedis: Normal Neurological/Psych: Oriented x3, Normal Speech ED Course And Treatment O2 Sat by Pulse Oximetry: 96 (on RA) Pulse Ox Interpretation: Normal - Other Rad ankle XR X-Ray: Viewed By Me, Read By Radiologist Interpretation: Date of service: 02/10/2018. PROCEDURE: Left Ankle Radiographs. HISTORY: pain s.p injury 1 month ago. COMPARISON: None available. FINDINGS: BONES: No fracture seen. Talar dome intact. JOINTS: Mild medial tibial talar osteoarthrosis suggested. SOFT TISSUES: Atherosclerotic vascular calcifications present. OTHER FINDINGS: No ankle mortise widening suggested. IMPRESSION: No fracture or lytic lesion. No dislocation. Atherosclerotic vascular calcifications present. CXR X-Ray: Viewed By Me, Read By Radiologist Interpretation: Date of service: 02/10/2018. HISTORY: sob. COMPARISON: 09/27/2017. TECHNIQUE: Chest PA and lateral. FINDINGS: LUNGS: No active pulmonary disease. PLEURA: No significant pleural effusion identified. No pneumothorax apparent. CARDIOVASCULAR: There is absence of aortic atherosclerotic calcification on x-ray. Normal cardiac size. No pulmonary vascular congestion. OSSEOUS STRUCTURES: No significant abnormalities. VISUALIZED UPPER ABDOMEN: Normal. OTHER FINDINGS: None. IMPRESSION: No active disease. No interval pathology noted. Medical Decision Making Medical Decision Making: Impression: 37 year old male with shortness of breath and left foot pain Plan: * CXR * left ankle XR * Albuterol INH * Motrin PO Progress: CXR and Left ankle XR ordered and reviewed. Albuterol INH and Motrin PO given. On reassessment, patient is resting comfortably, and is in no acute distress. Patient was instructed to follow up with physician/clinic in 1-2 days for further evaluation. Disposition Counseled Patient/Family Regarding: Diagnosis, Need For Followup, Rx Given - Disposition Referrals: [facility] [Outside] [facility] [Outside] Disposition: HOME/ ROUTINE Disposition Time: 13:55 Condition: STABLE Additional Instructions: Follow up with your primary medical doctor or clinic in 2-5 days for further evaluation. Take medications as prescribed. Return to the emergency department at any time if symptoms persist or worsen. Prescriptions: Albuterol HFA [Ventolin HFA 90 mcg/actuation (8 g)] 1 puff IH Q4 #1 puff Ibuprofen [Motrin] 600 mg PO Q8 #30 tab Instructions: Viral Upper Respiratory Infection, Adult (DC) Forms: [facility] (Indonesian), Work Excuse - POA Present On Arrival: None - Clinical Impression Clinical Impression: Respiratory tract infection, Ankle pain - PA / HAND KNITTER / Resident Statement MD/DO has reviewed & agrees with the documentation as recorded. - Scribe Statement The provider has reviewed the documentation as recorded by the Scribe (Disha Sanchez) All medical record entries made by the Scribe were at my direction and personally dictated by me. I have reviewed the chart and agree that the record accurately reflects my personal performance of the history, physical exam, medical decision making, and the department course for this patient. I have also personally directed, reviewed, and agree with the discharge instructions and disposition.
--- NOTE | 2018-02-10 13:44 | RAD ---
Date of service: 02/10/2018 PROCEDURE: Left Ankle Radiographs. HISTORY: pain s.p injury 1 month ago COMPARISON: None available. FINDINGS: BONES: No fracture seen. Talar dome intact. JOINTS: Mild medial tibial talar osteoarthrosis suggested SOFT TISSUES: Atherosclerotic vascular calcifications present. OTHER FINDINGS: No ankle mortise widening suggested. IMPRESSION: No fracture or lytic lesion. No dislocation. Atherosclerotic vascular calcifications present.
--- NOTE | 2018-02-10 13:48 | RAD ---
Date of service: 02/10/2018 HISTORY: sob COMPARISON: 09/27/2017 TECHNIQUE: Chest PA and lateral FINDINGS: LUNGS: No active pulmonary disease. PLEURA: No significant pleural effusion identified. No pneumothorax apparent. CARDIOVASCULAR: There is absence of aortic atherosclerotic calcification on x-ray. Normal cardiac size. No pulmonary vascular congestion. OSSEOUS STRUCTURES: No significant abnormalities. VISUALIZED UPPER ABDOMEN: Normal. OTHER FINDINGS: None. IMPRESSION: No active disease. No interval pathology noted.
[2018-02-10 14:01] VITALS: BP 148/100; PULSE 98; RESP 20
[2018-02-10 14:16] VITALS: O2SAT 96
== END 2018-02-10 14:04 | disposition home or self-care (01) ==
LOC: C.ER 11:35
DX: M25.572 Pain in left ankle and joints of left foot (principal); J98.8 Other specified respiratory disorders; E11.9 Type 2 diabetes mellitus without complications; I10 Essential (primary) hypertension

== ENCOUNTER 2018-03-07 17:13 | Emergency (ER) | payer MEDICAID ==
[2018-03-07 17:14] VITALS: BMI 38.9
[2018-03-07 17:33] VITALS: RESP 20; O2SAT 97
--- NOTE | 2018-03-07 19:06 | C.PDOC ---
History Of Present Illness 38 y/o male comes in stating that hes been feeling very anxious and emotional, and doesnt know what to do about it. States that it started today and has worsened when he got into an argument with his family members while entering the ED. Patient denies suicidal and homicidal ideation. Patient has a history of depression and anxiety and has not seen psychiatry and or taken any medications for it. Patient admits he drinks 1-2 drinks a day, smokes cigarettes intermittently, but no other illicit drug use. Denies auditory or visual hallucinations. Time Seen by Provider: 03/07/18 17:57 Chief Complaint (Nursing): Psychiatric Evaluation History Per: Patient History/Exam Limitations: no limitations Onset/Duration Of Symptoms: Hrs Current Symptoms Are (Timing): Still Present Past Medical History Reviewed: Historical Data, Nursing Documentation, Vital Signs Vital Signs: Last Vital Signs Temp 98.5 F 03/07/18 17:28 Pulse 102 H 03/07/18 17:28 Resp 20 03/07/18 17:28 BP 153/97 H 03/07/18 17:28 Pulse Ox 97 03/07/18 17:28 - Medical History PMH: Anxiety, Arthritis, Depression, Diabetes, HTN, Migraine, Seizures Denies: Hepatitis, HIV, Chronic Kidney Disease, Sexually Transmitted Disease Surgical History: Cholecystectomy - [facility] Procedures DETOXIFICATION SERVICES FOR SUBSTANCE ABUSE TREATMENT (12/31/16) INDIVIDUAL PSYCHOTHERAPY, SUPPORTIVE (12/31/16) Family History: States: No Known Family Hx - Social History Hx Alcohol Use: No Hx Substance Use: No - Immunization History Hx Tetanus Toxoid Vaccination: No Hx Influenza Vaccination: No Hx Pneumococcal Vaccination: No Review Of Systems Constitutional: Negative for: Fever Psych: Positive for: Anxiety, Depression. Negative for: Suicidal ideation (or homicidal ideation), Other (auditory or visual hallucinations) Physical Exam - Physical Exam Appears: Non-toxic, No Acute Distress, Other (Tearful and anxious) Skin: Warm, Dry Head: Atraumatic, Normacephalic Eye(s): bilateral: Normal Inspection, PERRL, EOMI Oral Mucosa: Moist Neck: Supple Chest: Symmetrical Cardiovascular: Rhythm Regular, No Murmur Respiratory: Normal Breath Sounds, No Rales, No Rhonchi, No Wheezing Gastrointestinal/Abdominal: Soft, No Tenderness Extremity: Bilateral: Atraumatic, Normal Color And Temperature, Normal ROM Neurological/Psych: Oriented x3, Normal Speech ED Course And Treatment O2 Sat by Pulse Oximetry: 97 (RA) Pulse Ox Interpretation: Normal Medical Decision Making Medical Decision Making: Plan: --EKG --Ativan 1 mg PO EKG: Sinus Tachycardia at 106 bpm. Normal intervals. Normal axis. No ST elevations. Crisis evaluated patient and will give information on outpatient psych resources. 1933- Patient dressed, standing at doorway, no longer tearful, states that he is ready to go home. Still denies SI/HI. Disposition - Disposition Disposition: HOME/ ROUTINE Disposition Time: 19:33 Condition: STABLE Additional Instructions: MELINDA HAGAN, thank you for letting us take care of you today. Your provider was Rocio Carlson MD and you were treated for ANEXITY. The emergency medical care you received today was directed at your acute symptoms. If you were prescribed any medication, please fill it and take as directed. It may take several days for your symptoms to resolve. Return to the Emergency Department if your symptoms worsen, do not improve, or if you have any other problems. Please contact your doctor or call one of the physicians/clinics you have been referred to that are listed on the Patient Visit Information form that is included in your discharge packet. Bring any paperwork you were given at discharge with you along with any medications you are taking to your follow up visit. Our treatment cannot replace ongoing medical care by a primary care provider outside of the emergency department. Thank you for allowing the [facility] team to be part of your care today. If you had an X-Ray or CT scan: A Radiologist will review the ED reading if any change in treatment is needed we will contact you. If you had a blood, urine, or wound culture: It will take several days for the results, if any change in treatment is needed we will contact you. If you had an STI test: It will take 48 hours for the results. Please call after 1 week if you have not heard back. Instructions: Anxiety, Adult (DC) Forms: [employer] (Dominican) - Clinical Impression Clinical Impression: Anxiety - Scribe Statement The provider has reviewed the documentation as recorded by the Sylvia Sosa Provider Attestation: All medical record entries made by the Shastaibe were at my direction and personally dictated by me. I have reviewed the chart and agree that the record accurately reflects my personal performance of the history, physical exam, medical decision making, and the department course for this patient. I have also personally directed, reviewed, and agree with the discharge instructions and disposition.
[2018-03-07 19:49] VITALS: BP 153/81; PULSE 103; TEMP 98.3
--- NOTE | 2018-03-09 21:37 | CARD ---
APPROVED REPORT Date of service: 03/07/2018 EKG Measurement Heart [id number] <Conclusion> Sinus tachycardia Possible Left atrial enlargement Borderline ECG
== END 2018-03-07 19:49 | disposition home or self-care (01) ==
LOC: C.ER 17:13
DX: F41.9 Anxiety disorder, unspecified (principal)